=== PATIENT | male | born 1980 | race African-American/Black ===

== ENCOUNTER 2019-12-16 11:46 | Emergency (ER) | payer SELFPAY ==
--- NOTE | 2019-12-16 13:01 | RAD ---
PA AND LATERAL CHEST: Date: 12/16/2019 HISTORY: Cough, congestion, and chills. COMPARISON: 11/11/10 study. FINDINGS: Heart size and mediastinum are within normal limits. Lungs are clear of infiltrates. No significant b lona findings. IMPRESSION: No active intrathoracic disease. POS: [facility]
== END 2019-12-16 13:10 | disposition home or self-care (01) ==
LOC: NAV ERS 11:46
DX: J40 Bronchitis, not specified as acute or chronic (principal)
CPT/HCPCS: 71046; 87070; 87205; 87804; 94640; J7620

== ENCOUNTER 2020-01-17 08:51 | Emergency (ER) | payer SELFPAY | END 2020-01-17 09:30 | disposition home or self-care (01) | LOC: NAV ERS 08:51 | DX: K02.9 Dental caries, unspecified (principal) | CPT/HCPCS: 99281 ==

== ENCOUNTER 2024-06-11 08:35 | Emergency (ER) | payer SELFPAY ==
[2024-06-11] MEDS ORDERED: Fluorescein Opthalmic Strip ONE (09:02)
[2024-06-11] MEDS ORDERED: Tetracaine 0.5% PF 4 ML BOT ONE (09:02)
[2024-06-11] MEDS ORDERED: Gentamicin Ophth Soln 0.3% 5 ml Bottle ONE (09:21)
== END 2024-06-11 09:28 | disposition home or self-care (01) ==
LOC: NAV ERS 08:35
DX: T15.01XA Foreign body in cornea, right eye, initial encounter (principal); I10 Essential (primary) hypertension; X58.XXXA Exposure to other specified factors, initial encounter
CPT/HCPCS: 65220; 99283